=== PATIENT | male | born 1980 | race Two or more races ===

== ENCOUNTER 2023-09-09 16:58 | Emergency (ER) | payer MEDICAID ==
[~2023-09-09] VITALS: Ht 167.6 cm; Wt 88.1 kg
[2023-09-09] MEDS: ONDANSETRON HCL 4 MG/2 ML VIAL IV ONE (18:18)
[2023-09-09] MEDS: MORPHINE SULFATE 4 MG/ML SYR/VIAL IV ONE (18:21)
[2023-09-09] MEDS ORDERED: IBUP-1456 PO (22:11)
[2023-09-09 23:37] VITALS: BP 153/95; PULSE 69; RESP 18; TEMP 98.5; O2SAT 98
== END 2023-09-09 23:37 | disposition home or self-care (01) ==
LOC: ER 16:58
DX: S40.021A Contusion of right upper arm, initial encounter (principal); W22.8XXA Striking against or struck by other objects, initial encounter; Y93.89 Activity, other specified; Y92.89 Other specified places as the place of occurrence of the external cause; Y99.8 Other external cause status
CPT/HCPCS: 73060; 73080; 96374; 96375; 99284; J2270; J2405